=== PATIENT | female | born 1945 | race Caucasian/White ===

== ENCOUNTER → 2019-01-28 08:25 | Outpatient (CLI) | payer MEDICARE, MEDICAID ==
[2011-01-02 11:34] VITALS: BMI 22.4
== END | disposition home or self-care (01) ==
LOC: D.US 08:25
PROVIDERS: ATTEND Legal Medicine
DX: N20.0 Calculus of kidney (principal)

== ENCOUNTER 2019-02-18 14:48 | Inpatient (IN) | payer MEDICARE, MEDICAID ==
[~2019-02-18] VITALS: Ht 162.6 cm; Wt 63.6 kg
--- NOTE | 2019-02-18 16:30 | NUR ---
ASSESSMENT PER FLOW SHEET.PT TO ROOM 2214 FROM [facility] VIA AMBULANCE.FALL PREVENTION INITIATED WITH TWILA. IV SITED TO LEFT WRIST X1 STICK USING ASEPTIC TECH,20G.DOOR OPEN TO MONITOR
[2019-02-18 17:50] LABS: ALBUMIN 2.8 g/dL (3.4-5.0); ANION GAP 14.2 mmol/L (8-16); BILIRUBIN - TOTAL 0.45 mg/dL (0.2-1.3); CARBON DIOXIDE 26.4 mmol/L (21.0-32.0); POTASSIUM - SERUM 3.6 mmol/L (3.5-5.1); PROTEIN - SERUM 6.4 g/dL (6.4-8.2)
[2019-02-18 18:01] VITALS: BP 161/91; Ht 162.6 cm; Wt 63.6 kg
[2019-02-18 18:01] LABS: CREATININE - SERUM 0.9 mg/dL (0.6-1.3)
[2019-02-18 18:02] LABS: CALCIUM 8.9 mg/dL (8.5-10.1)
--- NOTE | 2019-02-18 20:28 | NUR ---
PT HAD MRI BILAT HIPS, LUMBAR AND SACRUM ORDERED. PT WAS ABLE TO COMPLETE LUMBAR AND BILAT HIPS. PT STATED SHE WAS IN TOO MUCH PAIN TO CONTINUE. SHE AGREED TO DO SACRUM 02/19/19. WE WILL TRY AGAIN TOMORROW.
--- NOTE | 2019-02-18 21:40 | NUR ---
MEDICATED WITH DILAUDID FOR C/O BACK PAIN. NS @ 50 MLHR INFUSING IN LT FOREARM. PUREWICK CATH IN PLACE AND DRAINING DARK CLOUDY YELLOW URINE. SPEECH GARBLED AT TIMES. RT HAND IS CONTRACTURED AND HAS RT SIDED WEAKNESS FROM PREVIOUS CVA. TWILA ALARM ON FOR PT SAFETY. SR ELEVATED X2. CL IN REACH
[2019-02-18 22:56] VITALS: BP 182/104
[2019-02-19] VITALS (7 sets, daily range): BP systolic 160–180; BP diastolic 90–127
--- NOTE | 2019-02-19 00:33 | NUR ---
MEDICATED WITH DILAUDID FOR C/O BACK PAIN. RESP EVEN AND NONLABORED. GIVEN BED BATH AT THIS TIME PER CHIEF OF PRODUCTION. CL IN REACH. TWILA ALARM ON.
--- NOTE | 2019-02-19 03:15 | NUR ---
MEDICATED WITH DILAUDID FOR C/O BACK PAIN. RESP NONLABORED. NO DISTRESS. TWILA ALARM ON. CL IN REACH.
[2019-02-19 06:37] LABS: CALC OSMOLALITY 274 mosm/kg (275-300); CALCIUM 9.1 mg/dL (8.5-10.1); CARBON DIOXIDE 28.2 mmol/L (21.0-32.0); CHLORIDE - SERUM 100 mmol/L (98-107); CREATININE - SERUM 0.7 mg/dL (0.6-1.3); GLUCOSE 103 mg/dL (74-106); POTASSIUM - SERUM 3.2 mmol/L (3.5-5.1); SODIUM 138 mmol/L (136-145); UREA NITROGEN 11 mg/dL (7-18); eGFR NON AFRICAN AMERICAN 87 mL/min (90-120)
[2019-02-19 06:59] LABS: BASOPHILS 0.1 % (0-2); EOSINOPHILS 3.6 % (0-7); HEMATOCRIT 42.7 % (36.0-48.0); HEMOGLOBIN 14.2 g/dL (12-16); IMMATURE GRANULOCYTES 0.5 % (0-5); LYMPHOCYTES 8.2 % (15-50); MCH 29.6 pg (26.0-34.0); MCHC 33.3 g/dL (31.0-37.0); MEAN PLATELET VOLUME 10.2 fL (7.4-10.4); MONOCYTES 8.3 % (2-11); NEUTROPHILS 79.3 % (40-80); RDW 13.6 % (11.5-14.5); WBC 13.7 10x3/uL (4.8-10.8)
[2019-02-19 07:30] LABS: PLATELET COUNT 289 10x3/uL (130-400)
[2019-02-19] MEDS ORDERED: NORVASC5 MG PO (11:04)
[2019-02-19] MEDS ORDERED: NORMODYNE / TR200 MG PO (11:05)
[2019-02-19] MEDS ORDERED: VITAMIN D31000 UNIT PO (11:05)
[2019-02-19] MEDS ORDERED: PRAVACHOL40 MG PO (11:05)
[2019-02-19] MEDS ORDERED: ZANAFLEX4 MG PO (11:07)
--- NOTE | 2019-02-19 14:29 | NUR ---
I&O CATH COMPLETE AT THIS TIME FOR URINE SPECIMEN. SPECIMEN SENT TO LAB. CALL LIGHT WITHIN REACH.
[2019-02-19 14:55] LABS: APPEARANCE CLEAR (CLEAR); BILIRUBIN NEGATIVE (NEGATIVE); COLOR YELLOW (YELLOW); GLUCOSE NEGATIVE (NEGATIVE); KETONE SMALL mg/dL (NEGATIVE); NITRITE NEGATIVE (NEGATIVE); PROTEIN 1+ mg/dL (NEGATIVE); SPECIFIC GRAVITY 1.015 (1.005-1.020); UROBILINOGEN NORMAL (NORMAL)
[2019-02-19 14:56] LABS: WHITE CELLS - URINE OCC /hpf (NEGATIVE)
[2019-02-19 14:57] LABS: BACTERIA MANY /hpf (NEGATIVE); RED CELLS - URINE OCC /hpf (0-5)
--- NOTE | 2019-02-19 20:15 | NUR ---
A&O X 4. DENIES PAIN. SEVERE WEAKNESS NOTED TO RIGHT SIDE. DENIES NEEDS AT THIS TIME. WILL CONTINUE TO MONITOR.
[2019-02-20 01:14] VITALS: BP 143/80
--- NOTE | 2019-02-20 02:55 | NUR ---
I have reviewed this patient and I concur with the Shift Assessment completed by the Licensed Practical Nurse today this shift.
[2019-02-20 04:57] VITALS: BP 155/77
[2019-02-20 06:58] LABS: BASOPHILS 0.1 % (0-2); EOSINOPHILS 2.3 % (0-7); HEMATOCRIT 40.5 % (36.0-48.0); HEMOGLOBIN 13.4 g/dL (12-16); IMMATURE GRANULOCYTES 0.7 % (0-5); LYMPHOCYTES 11.4 % (15-50); MCHC 33.1 g/dL (31.0-37.0); MCV 87.7 fL (80.0-100.0); MEAN PLATELET VOLUME 9.8 fL (7.4-10.4); MONOCYTES 12.1 % (2-11); NEUTROPHILS 73.4 % (40-80); PLATELET COUNT 255 10x3/uL (130-400); RBC 4.62 10x6/uL (4.00-5.40); RDW 13.7 % (11.5-14.5)
[2019-02-20 07:03] LABS: CALC OSMOLALITY 272 mosm/kg (275-300); CALCIUM 9.1 mg/dL (8.5-10.1); CARBON DIOXIDE 27.8 mmol/L (21.0-32.0); CHLORIDE - SERUM 99 mmol/L (98-107); CREATININE - SERUM 0.7 mg/dL (0.6-1.3); GLUCOSE 95 mg/dL (74-106); SODIUM 137 mmol/L (136-145); UREA NITROGEN 11 mg/dL (7-18); eGFR NON AFRICAN AMERICAN 87 mL/min (90-120)
[2019-02-20 07:10] LABS: POTASSIUM - SERUM 2.7 mmol/L (3.5-5.1)
[2019-02-20 07:17] LABS: INR 1.25 (0.85-1.17); PROTIME 15.2 SECONDS (11.6-15.0)
[2019-02-20 07:18] LABS: APTT 29.1 SECONDS (22.8-39.4)
--- NOTE | 2019-02-20 07:41 | NUR ---
BEDSIDE REPORT RECIEVED. ASSUMED CARE. PATIENT IN BED WITH IV INTACT. LAYING ON SIDE RESTING QUIETLY WITH SCDS ON AND WORKING. CALL LIGHT WITHIN REACH.
[2019-02-20 08:59] VITALS: BP 164/84
--- NOTE | 2019-02-20 09:40 | NUR ---
WAS TOLD BY IR NURSE THAT PATIENT WILL GET BIOPSY TOMORROW DUE TO LOW K+ AND NEEDING ENEMAS FOR PROCEDURE TODAY.
--- NOTE | 2019-02-20 10:35 | NUR ---
PATIENT FIRST ENEMA GIVEN WITH RESULTS. DARK BROWN LIQUID WITH SMALL AMOUNTS OF SOLID IN. WILL REPEAT ENEMA.
--- NOTE | 2019-02-20 11:00 | NUR ---
PATIENT RECIEVED SECOND ENEMA AT THIS TIME. LIQUID LIGHT BROWN RESULTS WITH TINY PIECES OF SOLID IN. WILL REPEAT ENEMA.
--- NOTE | 2019-02-20 11:11 | NUR ---
ENEMA GIVEN AT THIS TIME FOR THIRD TIME. LIGHT COLORED WATERY STOOL RESULTS. EXPLAINED I WOULD LET PATIENT TAKE A BREAK AND DO A FEW MORE IN A LITTLE WHILE IF NEEDED. VERBALIZED UNDERSTANDING.
[2019-02-20 12:38] VITALS: BP 159/83
--- NOTE | 2019-02-20 14:00 | NUR ---
4TH WARM WATER ENEMA GIVEN AT THIS TIME. CLEAR RESULTS AT THIS TIME. EXPLAINED NO MORE ENEMAS NEEDED. VERBALIZED UNDERSTANDING. PATIENT CLEANED UP AND BED CHANGED. SCDS ON AND IV INTACT. NO COMPLAINTS OR SIGNS OF DISTRESS. CALL LIGHT WITHIN REACH.
--- NOTE | 2019-02-20 15:30 | NUR ---
PATIENT TO PROCEDURE
--- NOTE | 2019-02-20 16:40 | NUR ---
PATIENT BACK TO ROOM WITH IV INTACT. NO COMPLAINTS. VS STABLE. SCDS ON. CALL LIGHT WITHIN REACH.
--- NOTE | 2019-02-20 18:45 | NUR ---
PATIENT IN BED WITH IV INTACT. NO COMPLAINTS. CALL LIGHT WITHIN REACH.
[2019-02-20 20:00] VITALS: BP 154/77
--- NOTE | 2019-02-20 20:00 | NUR ---
A&O X 4. DENIES PAIN. REMINDED PT OF NPO STATUS AFTER MIDNIGHT. PT VERBALIZED UNDERSTANDING. DENIES NEEDS AT THIS TIME.
[2019-02-21] VITALS (13 sets, daily range): BP systolic 117–179; BP diastolic 56–89
--- NOTE | 2019-02-21 04:14 | NUR ---
I have reviewed this patient and I concur with the Shift Assessment completed by the Licensed Practical Nurse today this shift.
--- NOTE | 2019-02-21 06:45 | NUR ---
ALERT AND ORIENTED, RESTING IN BED. NO C/O PAIN. NO S/S OF ACUTE DISTRESS NOTED. PROCEDURE SCHEDULED FOR TODAY, NPO. SCDS ON. RIGHT ARM FLACCID. INCONTINENT OF B&B. IV TO LEFT FOREARM, NS INFUSING @ 50ML/HR. SCARS TO BILATERAL ARMS. PT DENIES ANY NEEDS AT THIS TIME. CALL LIGHT IN REACH. WILL CONTINUE TO MONITOR.
--- NOTE | 2019-02-21 11:27 | MORECARE ---
CASE MANAGEMENT DISCHARGE SUMMARY PATIENT: TONY ALFORD UNIT: [id number] ADM DATE: 02/18/19 AGE: 74 : 47 SEX: F ROOM/BED: D.2214 AUTHOR: AWA MORA PHYSICIAN: REFERRING PHYSICIAN: BRANDIE MARTIN MD DATE OF SERVICE: 02/21/19 Discharge Plan Patient Name: TONY ALFORD Facility: [facility]:[place] : 1945 Planned Disposition: Nursing Facility [facility] Cert Anticipated Discharge Date: Discharge Date: Expected LOS: Initial Reviewer: [email or web address] Initial Review Date: 02/18/2019 Generated: 02/21/19 12:27 pm Comments DCP- Discharge Planning Updated by [email or web address]: Dolores Del Toro on 02/21/19 10:[address] Attempted to see the patient this AM, patient was out of room to a procedure. She is from [facility], will try again at a later date. Patient Name: TONY ALFORD Page [id number] at 1127 All edits/amendments must be made on the electronic document DICTATION DATE: 02/21/191126 ELECTRONICS PROCESSING SUPERVISOR: TETO 02/21/191126 RPT#: [id number] DC DATE: STATUS: ADM IN [facility] [address] [place] [address] END OF REPORT
--- NOTE | 2019-02-21 17:38 | NUR ---
I have reviewed this patient and I concur with the Shift Assessment completed by the Licensed Practical Nurse today this shift.
--- NOTE | 2019-02-21 18:51 | NUR ---
ALERT AND ORIENTED, RESTING IN BED. THIS NURSE ASSISTED DIAGNOSTIC TECH WITH FULL BED CHANGE. C/O PAIN, GAVE DILAUDID FOR PAIN. NO S/S OF ACUTE DISTRESS NOTED. CALL LIGHT IN REACH. PT DENIES ANY NEEDS AT THIS TIME.
--- NOTE | 2019-02-21 19:30 | NUR ---
PATIENT ALERT AND ORIENTED WHEN ENTERING THE ROOM. PATIENT HAD LEFT FOREARM IV THAT IS PATENT AND INFUSING NS @ 50. PATIENT HAS DRESSING TO THE LEFT LOWER BACK THAT IS CLEAN DRY AND INTACT. PATIENT COMPLAINS OF BACK PAIN. PATIENT HAS RIGHT SIDED WEAKNESS WITH CONTRACTED HAND. HAS PUREWICK EXTERNAL CATHETER. YELLOW URINE DRAINING. DENIES FURTHER NEEDS AT THIS TIME. CPOC.
--- NOTE | 2019-02-21 20:15 | NUR ---
ADMINISTERED ZANAFLEX PER ORDER.
[2019-02-22 00:42] VITALS: BP 118/72
--- NOTE | 2019-02-22 02:50 | NUR ---
I have reviewed this patient and I concur with the Shift Assessment completed by the Licensed Practical Nurse today this shift.
[2019-02-22 04:00] VITALS: BP 125/61
[2019-02-22 05:03] LABS: BASOPHILS 0.2 % (0-2); EOSINOPHILS 6.3 % (0-7); HEMATOCRIT 40.5 % (36.0-48.0); HEMOGLOBIN 13.2 g/dL (12-16); IMMATURE GRANULOCYTES 0.7 % (0-5); LYMPHOCYTES 13.2 % (15-50); MCH 28.9 pg (26.0-34.0); MCHC 32.6 g/dL (31.0-37.0); MCV 88.6 fL (80.0-100.0); MEAN PLATELET VOLUME 10.1 fL (7.4-10.4); NEUTROPHILS 64.6 % (40-80); PLATELET COUNT 220 10x3/uL (130-400); RBC 4.57 10x6/uL (4.00-5.40); RDW 13.7 % (11.5-14.5); WBC 10.3 10x3/uL (4.8-10.8)
[2019-02-22 05:44] LABS: CALC OSMOLALITY 268 mosm/kg (275-300); CALCIUM 8.8 mg/dL (8.5-10.1); CARBON DIOXIDE 24.8 mmol/L (21.0-32.0); CHLORIDE - SERUM 98 mmol/L (98-107); CREATININE - SERUM 0.7 mg/dL (0.6-1.3); GLUCOSE 99 mg/dL (74-106); POTASSIUM - SERUM 3.3 mmol/L (3.5-5.1); SODIUM 135 mmol/L (136-145); UREA NITROGEN 10 mg/dL (7-18); eGFR NON AFRICAN AMERICAN 87 mL/min (90-120)
[2019-02-22 08:12] VITALS: BP 152/77
[2019-02-22] MEDS ORDERED: DILAUDID2 MG PO (11:17)
--- NOTE | 2019-02-22 11:25 | MORECARE ---
CASE MANAGEMENT DISCHARGE SUMMARY PATIENT: TONY ALFORD UNIT: [id number] ADM DATE: 02/18/19 AGE: 74 : 47 SEX: F ROOM/BED: D.2214 AUTHOR: AWA MORA PHYSICIAN: REFERRING PHYSICIAN: BRANDIE MARTIN MD DATE OF SERVICE: 02/22/19 Discharge Plan Patient Name: TONY ALFORD Facility: [facility]:[place] : 1945 Planned Disposition: Nursing Facility [facility] Cert Anticipated Discharge Date: Discharge Date: Expected LOS: Initial Reviewer: [email or web address] Initial Review Date: 02/18/2019 Generated: 02/22/19 12:25 pm Comments DCP- Discharge Planning Updated by [email or web address]: Bella Kang on 02/22/19 10:[address] PATIENT FOR DISCHARGE BACK TO THE [facility]. CM SPOKE W/ FAYE AT [phone]. HE STATES HER BED IS ON HOLD. SHE IS IN A MEDICAID BED. THEY CAN ACCEPT HER BACK TODAY. AMBULANCE TRANSFER WOULD BE APPROPRIATE SHE HAS HAD A CVA AND HAS BACK PAIN FOR WHICH SHE IS MEDICATED W/ DILAUDID FOR PAIN CONTROL. Q4H. DCP- Discharge Planning Updated by [email or web address]: Dolores Del Toro on 02/21/19 10:[address] Attempted to see the patient this AM, patient was out of room to a procedure. She is from [facility], will try again at a later date. Last DP export: 02/21/19 10:27 a Patient Name: TONY ALFORD Page [id number] at 1125 All edits/amendments must be made on the electronic document DICTATION DATE: 02/22/19 112 FERRYBOAT DECKHAND: TETO 02/22/19 112 RPT#: [id number] DC DATE: STATUS: ADM IN [facility] [address] [place] [address] END OF REPORT
--- NOTE | 2019-02-22 11:32 | MORECARE ---
CASE MANAGEMENT DISCHARGE SUMMARY PATIENT: TONY ALFORD UNIT: [id number] ADM DATE: 02/18/19 AGE: 74 : 47 SEX: F ROOM/BED: D.2214 AUTHOR: AWA MORA PHYSICIAN: REFERRING PHYSICIAN: BRANDIE MARTIN MD DATE OF SERVICE: 02/22/19 Discharge Plan Patient Name: TONY ALFORD Facility: [facility]:[place] : 1945 Planned Disposition: Nursing Facility [facility] Anticipated Discharge Date: Discharge Date: Expected LOS: Initial Reviewer: [email or web address] Initial Review Date: 02/18/2019 Generated: 02/22/19 12:32 pm Comments DCP- Discharge Planning Updated by [email or web address]: Bella Kang on 02/22/19 10:[address] CM SPOKE WITH THE PATIENT. ASK HER IF SHE WAS AWARE SHE WAS BEING DISCHARGED BACK TO THE [facility] TODAY. SHE SAID YES SHE HAD BEEN TOLD. SHE JUST WANTS TO MAKE SURE SHE HAS MEDICATION FOR PAIN. SHE IS IN AGREEMENT WITH THE PLAN. DCP- Discharge Planning Updated by [email or web address]: Bella Kang on 02/22/19 10:[address] PATIENT FOR DISCHARGE BACK TO THE [facility]. CM SPOKE W/ FAYE AT [phone]. HE STATES HER BED IS ON HOLD. SHE IS IN A MEDICAID BED. THEY CAN ACCEPT HER BACK TODAY. AMBULANCE TRANSFER WOULD BE APPROPRIATE SHE HAS HAD A CVA AND HAS BACK PAIN FOR WHICH SHE IS MEDICATED W/ DILAUDID FOR PAIN CONTROL. Q4H. DCP- Discharge Planning Updated by [email or web address]: Dolores Del Toro on 02/21/19 10:[address] Attempted to see the patient this AM, patient was out of room to a procedure. She is from [facility], will try again at a later date. Last DP export: 02/22/19 10:25 a Patient Name: TONY ALFORD Page [phone] at 1132 All edits/amendments must be made on the electronic document DICTATION DATE: 02/22/19 1132 GLAUCOMA SPECIALIST: TETO 02/22/19 1132 RPT#: [id number] DC DATE: STATUS: ADM IN [facility] [address] [place] [address] END OF REPORT
[2019-02-22 12:04] VITALS: BP 106/64
--- NOTE | 2019-02-24 10:19 | MORECARE ---
CASE MANAGEMENT DISCHARGE SUMMARY PATIENT: TONY ALFORD UNIT: [id number] ADM DATE: 02/18/19 AGE: 74 : 47 SEX: F ROOM/BED: D.2214 AUTHOR: AWA MORA PHYSICIAN: REFERRING PHYSICIAN: BRANDIE MARTIN MD DATE OF SERVICE: 02/24/19 Discharge Plan Patient Name: TONY ALFORD Facility: [facility]:[place] : 1945 Planned Disposition: Nursing Facility [facility] Anticipated Discharge Date: Discharge Date: 02/22/2019 Expected LOS: 0 Initial Reviewer: [email or web address] Initial Review Date: 02/18/2019 Generated: 02/24/19 11:19 am Comments DCP- Discharge Planning Updated by [email or web address]: Bella Kang on 02/22/19 10:[address] CM SPOKE WITH THE PATIENT. ASK HER IF SHE WAS AWARE SHE WAS BEING DISCHARGED BACK TO THE [facility] TODAY. SHE SAID YES SHE HAD BEEN TOLD. SHE JUST WANTS TO MAKE SURE SHE HAS MEDICATION FOR PAIN. SHE IS IN AGREEMENT WITH THE PLAN. DCP- Discharge Planning Updated by [email or web address]: Bella Kang on 02/22/19 10:[address] PATIENT FOR DISCHARGE BACK TO THE [facility]. CM SPOKE W/ FAYE AT [phone]. HE STATES HER BED IS ON HOLD. SHE IS IN A MEDICAID BED. THEY CAN ACCEPT HER BACK TODAY. AMBULANCE TRANSFER WOULD BE APPROPRIATE SHE HAS HAD A CVA AND HAS BACK PAIN FOR WHICH SHE IS MEDICATED W/ DILAUDID FOR PAIN CONTROL. Q4H. DCP- Discharge Planning Updated by [email or web address]: Dolores Del Toro on 02/21/19 10:[address] Attempted to see the patient this AM, patient was out of room to a procedure. She is from [facility], will try again at a later date. Last DP export: 02/22/19 10:32 a Patient Name: TONY ALFORD Page [phone] at 1019 All edits/amendments must be made on the electronic document DICTATION DATE: 02/24/19 1019 SWITCHBOARD OPERATOR: TETO 02/24/19 1019 RPT#: [id number] DC DATE:02/22/19 STATUS: DIS IN [facility] [address] [place] [address] END OF REPORT
[2019-02-24 17:08] LABS: AEROBE ID Final report (()); RESULT 1 Aerococcus urinae (())
== END 2019-02-22 12:52 | disposition home or self-care (01) | DRG 478 ==
LOC: D.MS 14:48
PROVIDERS: Emergency Medicine; Radiology Diagnostic Radiology; Radiology Vascular & Interventional Radiology; ADMIT Legal Medicine; ATTEND Legal Medicine
PROC: 0DJD8ZZ Inspection of Lower Intestinal Tract, Via Natural or Artificial Opening Endoscopic (ICD-10-PCS; 2019-02-20)
PROC: 0QB03ZX Excision of Lumbar Vertebra, Percutaneous Approach, Diagnostic (ICD-10-PCS; principal; 2019-02-21 08:50)
DX: D48.0 Neoplasm of uncertain behavior of bone and articular cartilage (principal); N39.0 Urinary tract infection, site not specified; M54.9 Dorsalgia, unspecified; R22.2 Localized swelling, mass and lump, trunk; Z86.73 Personal history of transient ischemic attack (TIA), and cerebral infarction without residual deficits; E87.6 Hypokalemia; I10 Essential (primary) hypertension